=== PATIENT | male | born 2000 | race Caucasian/White ===

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

== ENCOUNTER 2023-10-14 07:21 | Emergency (ER) | payer MEDICAID ==
[~2023-10-14] VITALS: Ht 172.7 cm; Wt 117.9 kg
[~2023-10-14 07:21] MED LIST: ALBMDI INH; PRED2.5T4 PO; SALM50DI2 INH
[2023-10-14 07:26] VITALS: BP_SYST 130; PULSE 76; RESP 17; TEMP 98; O2SAT 98
[2023-10-14] MEDS ORDERED: LIDOCAINE 1% 10 MG/ML, 20 ML MDV INJ ONE (07:45)
[2023-10-14] MEDS ORDERED: CEPH250C PO (08:10)
[2023-10-14 08:18] VITALS: BP_SYST 130; PULSE 76; RESP 17; TEMP 98; O2SAT 98
== END 2023-10-14 08:18 | disposition home or self-care (01) ==
LOC: SED 07:21
DX: L60.0 Ingrowing nail (principal); J45.909 Unspecified asthma, uncomplicated; Z79.899 Other long term (current) drug therapy
CPT/HCPCS: 99284